=== PATIENT | female | born 1985 | race African-American/Black ===

== ENCOUNTER 2016-06-20 22:42 | Emergency (ER) | payer OTHER ==
[2016-06-20 22:51] VITALS: BP 108/59; PULSE 75; TEMP 98.1; BMI 25.7
[2016-06-20] MEDS ORDERED: NAPROXEN 375 MG TABLET (FP) ONE (23:44)
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
== END 2016-06-21 | disposition home or self-care (01) ==
LOC: FER 22:42
DX: S29.012A Strain of muscle and tendon of back wall of thorax, initial encounter (principal); X58.XXXA Exposure to other specified factors, initial encounter; Y93.89 Activity, other specified; Y92.159 Unspecified place in reform school as the place of occurrence of the external cause; Y99.0 Civilian activity done for income or pay
CPT/HCPCS: 99282-25

== ENCOUNTER 2018-01-06 22:17 | Emergency (ER) | payer OTHER ==
[2018-01-06 22:42] VITALS: BP 119/77; PULSE 73; TEMP 98.3; BMI 26.4
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
== END 2018-01-07 00:48 | disposition home or self-care (01) ==
LOC: FER 22:17
DX: S39.012A Strain of muscle, fascia and tendon of lower back, initial encounter (principal); S29.019A Strain of muscle and tendon of unspecified wall of thorax, initial encounter; V43.52XA Car driver injured in collision with other type car in traffic accident, initial encounter; Y93.89 Activity, other specified; Y92.410 Unspecified street and highway as the place of occurrence of the external cause
CPT/HCPCS: 72100-TC-FY; 84703; 99281-25

== ENCOUNTER 2018-02-06 14:35 | Emergency (ER) | payer OTHER ==
[2018-02-06 14:45] VITALS: BP 116/68; PULSE 74; TEMP 98; BMI 26.6
--- NOTE | 2018-02-06 15:07 | PDOC ---
History of Present Illness - General Chief Complaint: Urinary Problem Stated Complaint: POSSIBLE UTI Time Seen by Provider: 02/06/18 14:51 History Source: Patient Exam Limitations: No Limitations Past History - Past Medical History Allergies/Adverse Reactions: Allergies Allergy/AdvReac Type Severity Reaction Status Date / Time No Known Allergies Allergy Verified 02/06/18 14:44 Home Medications: Ambulatory Orders Cephalexin [Keflex] 500 mg PO BID #14 capsule 02/06/18 Anemia: No Asthma: No Cancer: No Cardiac Disorders: No CVA: No COPD: No CHF: No Dementia: No Diabetes: No GI Disorders: No Disorders: No HTN: No Hypercholesterolemia: No Liver Disease: No Seizures: No Thyroid Disease: No - Surgical History Abdominal Surgery: No Appendectomy: No Cardiac Surgery: No Cholecystectomy: No Lung Surgery: No Neurologic Surgery: No Orthopedic Surgery: No - Immunization History Immunization Up to Date: Yes - Suicide/Smoking/Psychosocial Hx Smoking Status: No Smoking History: Never smoked Have you smoked in the past 12 months: No Number of Cigarettes Smoked Daily: 0 Information on smoking cessation initiated: No Hx Alcohol Use: No Drug/Substance Use Hx: No Substance Use Type: None Hx Substance Use Treatment: No *Physical Exam - Vital Signs Last Vital Signs Temp Pulse Resp BP Pulse Ox 98.0 F 74 16 116/68 100 02/06/18 14:42 02/06/18 14:42 02/06/18 14:42 02/06/18 14:42 02/06/18 14:42 - Physical Exam General Appearance: No: Apparent Distress Respiratory/Chest: positive: Lungs Clear, Normal Breath Sounds. negative: Respiratory Distress Cardiovascular: positive: Regular Rhythm, Regular Rate, S1, S2. negative: Murmur Gastrointestinal/Abdominal: positive: Normal Bowel Sounds, Soft. negative: Tender, Distended, Guarding, Rebound, Tenderness Musculoskeletal: negative: CVA Tenderness Neurologic: positive: Fully Oriented, Alert, Normal Mood/Affect Moderate Sedation - Procedure Monitoring Vital Signs: Procedure Monitoring Vital Signs Temperature 98.0 F 02/06/18 14:42 Pulse Rate 74 02/06/18 14:42 Respiratory Rate 16 02/06/18 14:42 Blood Pressure 116/68 02/06/18 14:42 O2 Sat by Pulse Oximetry (%) 100 02/06/18 14:42 Medical Decision Making - Medical Decision Making 33 y/o F with no sig pmh presents with c/o "I have UTI." Patient mentions having urinary frequency, urgency and discomfort x 3 days. Has had UTIs in the past and states her symptoms feel similar to prior. Denies fever, sob, cp, abd pain, n/v, flank pain, hematuria, unusual vaginal discharge Will send UA, UCx to check for UTI 02/06/18 15:01 UA positive for UTI Microscopic hematuria noted (patient not on menstrual cycle); likely from the UTI Patient advised to practice good hygiene and drink plenty of water Prior urine culture from 09/2017 was positive for E.coli and was alves-sensitive to everything New rx: Keflex 500 mg BID 02/06/18 16:27 *DC/Admit/Observation/Transfer Diagnosis at time of Disposition: UTI (urinary tract infection) Qualifiers: Urinary tract infection type: acute cystitis Hematuria presence: without hematuria Qualified Code(s): N30.00 - Acute cystitis without hematuria - Discharge Dispostion Disposition: HOME Condition at time of disposition: Stable Decision to Admit order: No - Prescriptions Prescriptions: Cephalexin [Keflex] 500 mg PO BID #14 capsule - Referrals Referrals: Donta Yo MD [Primary Care Provider] - 3 days - Patient Instructions Printed Discharge Instructions: DI for Urinary Tract Infection (UTI) Additional Instructions: Thank you for choosing [facility]. It was a pleasure taking care of you. You were found to have urine infection Please take the antibiotics as prescribed Drink at least 2 L of water everyday Be sure to practice good hygiene Follow-up with your PCP in 3 days. Return to the Emergency Department if your symptoms worsen or persist, you have fever, shortness of breath, chest pain, severe abdominal pain, vomiting, blood in urine or other concerning symptoms. - Post Discharge Activity
[2018-02-06 16:06] LABS: URINE APPEARANCE CLOUDY; URINE BILIRUBIN NEGATIVE (<2.0 mg/dL); URINE COLOR YELLOW; URINE GLUCOSE (UA) NEGATIVE (NEGATIVE); URINE KETONE NEGATIVE (NEGATIVE); URINE LEUK ESTERASE 3+ (NEGATIVE); URINE NITRITE NEGATIVE (NEGATIVE); URINE PROTEIN 1+ (NEGATIVE); URINE UROBILINOGEN NEGATIVE mg/dL (0.2-1.0)
[2018-02-06 16:12] LABS: EPI CELLS MANY /HPF (FEW); URINE MUCUS FEW
[2018-02-06] MEDS ORDERED: CEPHALEXIN MONOHYDRATE 500 MG CAPSULE (UD) PO ONE (16:26)
[2018-02-06] MEDS ORDERED: CEPHALEXIN MONOHYDRATE 500 MG CAPSULE (UD) ONE (16:31)
== END 2018-02-06 16:39 | disposition home or self-care (01) ==
LOC: JERFT 14:35
DX: N30.00 Acute cystitis without hematuria (principal)
CPT/HCPCS: 81003; 81015; 87086; 99281-25

== ENCOUNTER 2018-04-06 20:19 | Emergency (ER) | payer OTHER ==
--- NOTE | 2018-04-06 20:48 | PDOC ---
Rapid Medical Evaluation Chief Complaint: Vaginal Bleeding Time Seen by Provider: 04/06/18 20:47 Medical Evaluation: Allergies Allergy/AdvReac Type Severity Reaction Status Date / Time No Known Allergies Allergy Verified 02/06/18 14:44 04/06/18 20:47 I have performed a brief in-person evaluation of this patient. The patient presents with a chief complaint of:cramping w/ vag bleeding today. , ~9 weeks by dates, no care as of yet Pertinent physical exam findings: Hypotensive but well geena in NAD I have ordered the following:T&S/beta/UA/US The patient will proceed to the ED for further evaluation. 04/06/18 20:57 Discharge Disposition - Diagnosis Threatened - Referrals - Patient Instructions - Post Discharge Activity
[2018-04-06 20:50] VITALS: BP 94/55; PULSE 67; TEMP 98.3; BMI 26.4
--- NOTE | 2018-04-06 21:33 | PDOC ---
History of Present Illness - General Chief Complaint: Vaginal Bleeding Stated Complaint: BLEEDING Time Seen by Provider: 04/06/18 20:47 History Source: Patient Exam Limitations: No Limitations - History of Present Illness Initial Comments: 33 yo F estimated GA with LMP of 01/23/2018 presents to the emergency department with vaginal bleeding, cramping, and lower back pain that began at approximately at 8:30 pm. Per the patient, she states she had acute onset of bilateral lower quadrant cramping sensation with radiation to her lower back bilaterally. The pain is 10/10 in her lower back and 6/10 in the bilateral lower abdomen with intermittence. Concurrently, she states she was having vaginal spotting in her underwear with red blood found on her tissues when she wipes, but denies massive clots. Incidentally, she has The patient is followed by Dr. Ulloa, but has not had her first appointment. She denies previous obstetric complications. Denies the following: fever, chills, nausea vomiting, chest pain, SOB, dysuria, diarrhea, and hematochezia. Allergies: NKDA Past History - Past Medical History Allergies/Adverse Reactions: Allergies Allergy/AdvReac Type Severity Reaction Status Date / Time No Known Allergies Allergy Verified 04/08/18 02:25 Anemia: No Asthma: No Cancer: No Cardiac Disorders: No CVA: No COPD: No CHF: No Dementia: No Diabetes: No GI Disorders: No Disorders: No HTN: No Hypercholesterolemia: No Liver Disease: No Seizures: No Thyroid Disease: No - Surgical History Abdominal Surgery: No Appendectomy: No Cardiac Surgery: No Cholecystectomy: No Lung Surgery: No Neurologic Surgery: No Orthopedic Surgery: No - Immunization History Immunization Up to Date: Yes - Suicide/Smoking/Psychosocial Hx Smoking Status: No Smoking History: Never smoked Have you smoked in the past 12 months: No Number of Cigarettes Smoked Daily: 0 Information on smoking cessation initiated: No Hx Alcohol Use: No Drug/Substance Use Hx: No Substance Use Type: None Hx Substance Use Treatment: No Review of Systems - Review of Systems Able to Perform ROS?: Yes Is the patient limited [place]an proficient: No Constitutional: No: Chills, Diaphoresis, Fever, Weakness HEENTM: No: Eye Pain, Recent change in vision, Ear Pain, Nose Pain, Throat Pain , Mouth Pain Respiratory: No: Cough, Shortness of Breath, Hemoptysis Cardiac (ROS): No: Chest Pain, Lightheadedness, Palpitations, Syncope, Chest Tightness ABD/GI: Yes: Abdominal cramping. No: Constipated, Diarrhea, Nausea, Rectal Bleeding, Vomiting, Tarry Stools : No: Burning, Dysuria, Hematuria Musculoskeletal: Yes: Back Pain. No: Joint Pain, Neck Pain Integumentary: No: Bruising, Erythema, Rash Neurological: No: Headache, Tingling, Ataxia, Dizziness Psychiatric: No: Change in Appetite Endocrine: No: Unexplained Weight Gain Hematologic/Lymphatic: No: Anemia *Physical Exam - Vital Signs Last Vital Signs Temp Pulse Resp BP Pulse Ox 98.3 F 67 16 94/55 L 98 04/06/18 20:47 04/06/18 20:47 04/06/18 20:47 04/06/18 20:47 04/06/18 20:47 - Physical Exam General Appearance: Yes: Nourished, Appropriately Dressed. No: Apparent Distress, Intoxicated HEENT: positive: EOMI, MORGAN, Normal ENT Inspection, Normal Voice, Symmetrical, TMs Normal, Pharynx Normal, Hearing Grossly Normal. negative: Pale Conjunctivae , Scleral Icterus (R), Scleral Icterus (L), Muffled/Hoarse voice, Pharyngeal Erythema, Tonsillar Exudate, Tonsillar Erythema, Nasal Congestion, Rhinorrhea, Sinus Tenderness, Excessive drooling Neck: positive: Trachea midline, Supple. negative: Tender, Lymphadenopathy (R) , Lymphadenopathy (L), Tender lateral, Tender midline Respiratory/Chest: positive: Lungs Clear, Normal Breath Sounds. negative: Chest Tender, Respiratory Distress, Accessory Muscle Use, Crackles, Rhonchi, Stridor, Wheezing Cardiovascular: positive: Regular Rhythm, Regular Rate, S1, S2. negative: Systolic Murmur Female Pelvic Exam: positive: normal external exam, other (blood in the vaginal vault. on bimanual, patient's os was fingertip open.). negative: adnexal tenderness Gastrointestinal/Abdominal: positive: Normal Bowel Sounds, Flat, Soft. negative : Tender, Guarding, Rebound Lymphatic: negative: Adenopathy Musculoskeletal: positive: Normal Inspection. negative: CVA Tenderness, Vertebral Tenderness Extremity: positive: Normal Capillary Refill, Normal Inspection, Normal Range of Motion. negative: Tender Integumentary: positive: Normal Color, Dry, Warm. negative: Swelling, Ecchymosis Neurologic: positive: thermite welder II-XII NML intact, Fully Oriented, Alert, Normal Mood/ Affect, Normal Response, Motor Strength 5/5. negative: EOM Palsy, Facial Droop Moderate Sedation - Procedure Monitoring Vital Signs: Procedure Monitoring Vital Signs Temperature 98.3 F 04/06/18 20:47 Pulse Rate 67 04/06/18 20:47 Respiratory Rate 16 04/06/18 20:47 Blood Pressure 94/55 L 04/06/18 20:47 O2 Sat by Pulse Oximetry (%) 98 04/06/18 20:47 Medical Decision Making - Medical Decision Making 33 yo F estimated GA with LMP of 01/23/2018 presents to the emergency department with vaginal bleeding, cramping, and lower back pain that began at approximately at 8:30 pm. Initial vitals: Initial Vital Signs Temp Pulse Resp BP Pulse Ox 98.3 F 67 16 94/55 L 98 04/06/18 20:47 04/06/18 20:47 04/06/18 20:47 04/06/18 20:47 04/06/18 20:47 Work up: ddx: threatened vs incomplete vs inevitable vs complete vs dysmenorrhea Laboratory Tests 04/06/18 04/06/18 04/06/18 20:50 20:50 21:25 Beta HCG, Quant 2875.0 Urine Color Yellow Urine Appearance Cloudy Urine pH 7.0 D Ur Specific [place] 1.023 Urine Protein Negative Urine Glucose (UA) Negative Urine Ketones Negative Urine Blood 3+ H Urine Nitrite Negative Urine Bilirubin Negative Urine Urobilinogen Negative Ur Leukocyte Esterase Trace Urine WBC (Auto) 3 Urine RBC (Auto) 5 Ur Epithelial Cells Moderate Urine Bacteria Rare Urine Mucus Rare Blood Type B POSITIVE Antibody Screen Negative bhcg is 2875 with TVUS showing likely demise. patient has not had first appointment with obgyn as they kept missing the appointments and has not been on vitamins. i discussed with the patient that she was likely going through a miscarriage given the bhcg, tvus, and physical exam findings. i gave her strict return precautions and advised her to follow up with her OBGYN physician in 48 hours for repeat bhcg and us. the patient was well appearing on discharge and able to ambulate on her own volition. Dispo: Discharge *DC/Admit/Observation/Transfer Diagnosis at time of Disposition: Threatened - Discharge Dispostion Disposition: HOME Decision to Admit order: No - Referrals Referrals: Donta Yo MD [Primary Care Provider] - Corin Stovall DO [Staff Physician] - - Patient Instructions Printed Discharge Instructions: DI for Threatened Additional Instructions: you were seen in the emergency for the evaluation of your vaginal bleeding and cramping. your ultrasound shows probably demise. your bhcg is 2875. please follow up with Dr. Stovall in 2 days for a repeat bhcg and ultrasound. please return to the emergency department if you have the following symptoms: worsening cramps, heavier bleeding with clots passing, lightheadedness, intractable nausea and vomiting, and uncontrollable pain. Please review the materials regarding your condition included in this packet. - Post Discharge Activity
[2018-04-06 21:42] LABS: URINE APPEARANCE CLOUDY; URINE BILIRUBIN NEGATIVE (<2.0 mg/dL); URINE COLOR YELLOW; URINE GLUCOSE (UA) NEGATIVE (NEGATIVE); URINE KETONE NEGATIVE (NEGATIVE); URINE LEUK ESTERASE TRACE (NEGATIVE); URINE NITRITE NEGATIVE (NEGATIVE); URINE PROTEIN NEGATIVE (NEGATIVE); URINE UROBILINOGEN NEGATIVE mg/dL (0.2-1.0)
[2018-04-06 21:50] LABS: EPI CELLS MODERATE /HPF (FEW); URINE BACTERIA RARE /hpf (NONE SEEN); URINE MUCUS RARE
--- NOTE | 2018-04-06 22:03 | PDOC ---
Attending Attestation - HPI HPI: 04/06/18 22:28 The patient is a 33 year old female, , who presents to the ER with vaginal bleeding, abdominal cramping, and lower back pain today. Patient reports seeing red blood after wiping today, but denies any blood clots. 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 LMP was on January 23. Patient denies fever, chills, N/V/D/C, urinary symptoms. Allergies: NKA Past surgical history: None reported. Social history: No reported alcohol, drug or cigarette use. PCP: Dr. Donta Yo - Physicial Exam PE: 04/06/18 22:25 ADULT PHYSICAL EXAM Constitutional: Awake, alert, oriented. No acute distress. Cardiovascular: Regular rate. Regular rhythm. S1, S2 regular. Distal pulses are 2+ and symmetric. Pulmonary/Chest: No evidence of respiratory distress. Clear to auscultation bilaterally No wheezing, rales or rhonchi. Abdominal: Soft and non-distended. There is no tenderness. No rebound, guarding or rigidity. No organomegaly. No palpable masses. Good bowel sounds. Pelvic Exam: (+) Os is fingertip open, bright red blood in the vault, no clots. Musculoskeletal: No edema. No cyanosis. No clubbing. Full range of motion in all extremities. Nocalf tenderness. Radial/pedal pulses are intact and 2+ bilaterally Skin: Skin is warm and dry. No petechiae. No purpura. Neurological: Alert and oriented to person, place, and time. Cranial nerves II -XII are grossly intact. Normal speech. Strength is grossly symmetric. No sensory deficits. Psychiatric: Good eye contact. Normal interaction, affect and behavior. <Mile Patterson - Last Filed: 04/06/18 23:35> - Resident Resident Name: James Topete - ED Attending Attestation I have performed the following: I have examined & evaluated the patient, The case was reviewed & discussed with the resident, I agree w/resident's findings & plan, Exceptions are as noted - Medical Decision Making 04/06/18 22:03 I, Dr. Lilly Pavon, DO, attest that this document has been prepared under my direction and personally reviewed by me in its entirety. I further attest, that it accurately reflects all work, treatment, procedures and medical decision -making performed by me. 04/06/18 22:32 a/p: 33yo at about 10 weeks gestation with vaginal cramping and bleeding -concern for threatened ab -has missed multiple [facility] appointments and has not had confirmed IUP -pelvic exam shows os open and blood in the vaginal vault -labs pending -tvus pending -will monitor and reassess -pt is not taking vitamins -follows with Dr. Stovall 04/06/18 23:52 beta 2500 demise on ultrasound resident discussed expectant management stable for dc to home <Lilly Pavon - Last Filed: 04/06/18 23:52>
[2018-04-06] MEDS ORDERED: ACETAMINOPHEN 325 MG TABLET (FP) ONE ×2 (22:53→22:55)
== END 2018-04-07 00:24 | disposition home or self-care (01) ==
LOC: JER 20:19
DX: O26.891 Other specified pregnancy related conditions, first trimester (principal); O02.1 Missed abortion; Z3A.10 10 weeks gestation of pregnancy
CPT/HCPCS: 36415; 76817-TC; 81003; 81015; 84702; 86850; 86900; 86901; 87081; 99282-25

== ENCOUNTER 2018-04-08 02:11 | Emergency (ER) | payer OTHER ==
[2018-04-08 02:26] VITALS: TEMP 98.3; BMI 26.4
--- NOTE | 2018-04-08 02:51 | PDOC ---
Attending Attestation - Resident Resident Name: Vladimir Bosch - ED Attending Attestation I have performed the following: I have examined & evaluated the patient, The case was reviewed & discussed with the resident, I agree w/resident's findings & plan - HPI HPI: 04/08/18 03:34 33-year-old female with vaginal bleeding, patient seen yesterday and diagnosed with a missed with scheduled KEY ENTRY OPERATOR follow-up at 9:45 AM. She states she passed a large clot and the bleeding became heavier. There is no associated fever vomiting or back pain. She is having pelvic cramps. - Physicial Exam PE: 04/08/18 03:35 Agree with resident's exam - Medical Decision Making 04/08/18 03:35 33-year-old female with missed now with increased bleeding Bedside ultrasound showed no obvious debris in the uterus Labs pending with plans for discharge home if beta quantitative level is decreased
--- NOTE | 2018-04-08 02:52 | PDOC ---
History of Present Illness - General Chief Complaint: Vaginal Bleeding Stated Complaint: MISCARRIAGE Time Seen by Provider: 04/08/18 02:51 - History of Present Illness Initial Comments: The patient is a 33 year old female, , who presents for evaluation of persistent vaginal bleeding, abdominal cramping, and lower back pain since yesterday. She was seen here on 04/06/2018 for the initiation of her symptoms. At that time she states that she was 10weeks . Today she reports that passage of large clots at approximately 2000 earlier tonight. Reports soaking 2 pads every 30 minutes since that time. She endorses being lightheaded. Denies LOC. 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 LMP was on January 23. Allergies: NKA Past surgical history: None reported. Social history: No reported alcohol, drug or cigarette use PCP: Dr. Donta Yo 04/08/18 02:52 Past History - Past Medical History Allergies/Adverse Reactions: Allergies Allergy/AdvReac Type Severity Reaction Status Date / Time No Known Allergies Allergy Verified 04/08/18 02:25 Anemia: No Asthma: No Cancer: No Cardiac Disorders: No CVA: No COPD: No CHF: No Dementia: No Diabetes: No GI Disorders: No Disorders: No HTN: No Hypercholesterolemia: No Liver Disease: No Seizures: No Thyroid Disease: No - Surgical History Abdominal Surgery: No Appendectomy: No Cardiac Surgery: No Cholecystectomy: No Lung Surgery: No Neurologic Surgery: No Orthopedic Surgery: No - Immunization History Immunization Up to Date: Yes - Suicide/Smoking/Psychosocial Hx Smoking Status: No Smoking History: Never smoked Have you smoked in the past 12 months: No Number of Cigarettes Smoked Daily: 0 Information on smoking cessation initiated: No Hx Alcohol Use: No Drug/Substance Use Hx: No Substance Use Type: None Hx Substance Use Treatment: No Review of Systems - Review of Systems Able to Perform ROS?: Yes Comments:: GENERAL/CONSTITUTIONAL: No fever or chills. No weakness HEAD, EYES, EARS, NOSE AND THROAT: No change in vision. No ear pain or discharge. No sore throat CARDIOVASCULAR: No chest pain or shortness of breath RESPIRATORY: Denies cough, hemoptysis GASTROINTESTINAL: No nausea, vomiting, diarrhea or constipation GENITOURINARY: per HPI MUSCULOSKELETAL: +lower back pain since onset of SAb. Otherwise, no joint or muscle swelling or pain SKIN: No rash NEUROLOGIC: No headache, vertigo, loss of consciousness, or change in strength/ sensation ENDOCRINE: No increased thirst. No abnormal weight change HEMATOLOGIC/LYMPHATIC: No anemia, easy bleeding, or history of blood clots ALLERGIC/IMMUNOLOGIC: No hives or skin allergy 04/08/18 03:46 Is the patient limited Swedish proficient: No *Physical Exam - Vital Signs Last Vital Signs Temp Pulse Resp BP Pulse Ox 98.3 F 78 20 116/68 98 04/08/18 02:25 04/08/18 02:25 04/08/18 02:25 04/08/18 02:25 04/08/18 02:25 - Physical Exam Comments: GENERAL: Awake, alert, and fully oriented, in no acute distress HEAD: No signs of trauma, normocephalic, atraumatic EYES: PERRLA, EOMI, sclera anicteric, conjunctiva clear ENT: Hearing grossly normal, nares patent, oropharynx clear without exudates. Moist mucosa LUNGS: No distress, speaks full sentences, clear to auscultation bilaterally HEART: Regular rate and rhythm, normal S1 and S2, no murmurs appreciated, peripheral pulses normal and equal bilaterally ABDOMEN: Soft, mild suprapubic TTP w/o rebound or guarding, non-distended, normoactive bowel sounds EXTREMITIES : Normal inspection, Normal range of motion, no edema. No clubbing or cyanosis NEUROLOGICAL: Cranial nerves II through XII grossly intact. Normal speech, no focal sensorimotor deficits SKIN: Warm, Dry, normal turgor, no rashes or lesions noted Pelvic External genitalia unremarkable. Speculum exam with blood and clot in vaginal canal Vaginal wall mucosa is unremarkable Cervical os open 04/08/18 03:36 Moderate Sedation - Procedure Monitoring Vital Signs: Procedure Monitoring Vital Signs Temperature 98.3 F 04/08/18 02:25 Pulse Rate 78 04/08/18 02:25 Respiratory Rate 20 04/08/18 02:25 Blood Pressure 116/68 04/08/18 02:25 O2 Sat by Pulse Oximetry (%) 98 04/08/18 02:25 ED Treatment Course - LABORATORY CBC & Chemistry Diagram: 04/08/18 03:21 Medical Decision Making - Medical Decision Making The patient is a 33F who presents for persistent bleeding s/p beginning spontaneous yesterday with passage of clot and likely contents today ED Course Beta quant CBC 02/08/19 03:49 Hgb wnl Leukocytosis to 16, pt afebrile Patient with vagal episode -1L NS given -Will obtain standing BP s/p fluids Beta downtrending Patient w/ OBGYN appt at 0900 today, counseled to make sure she keeps said appointment 04/08/18 05:27 Standing BP: 87/43 -Will give another 1L NS 04/08/18 05:36 Repeat BP while standing improved s/p second liter Patient not lightheaded w/ standing and reports her symptoms are improved Plan for D/C w/ OBGYN f/u Discharge instructions and return precautions given Patient in agreement and verbalized understanding Dispo: home *DC/Admit/Observation/Transfer Diagnosis at time of Disposition: Spontaneous - Discharge Dispostion Disposition: HOME Condition at time of disposition: Stable Decision to Admit order: No - Referrals Referrals: Jolly Puga MD [Primary Care Provider] - Corin Stovall DO [Staff Physician] - - Patient Instructions Printed Discharge Instructions: DI for Miscarriage Additional Instructions: You were seen in the Emergency Department for evaluation of vaginal bleeding and spontaneous miscarriage. You hemoglobin was within normal limits (13). Review the handout provided at discharge. Be sure to keep your follow up with OBGYN this coming morning. Return to the Emergency Department if your symptoms worsen, you have uncontrolled bleeding, dizziness, fevers, or any new/concerning symptoms. - Post Discharge Activity Forms/Work/School Notes: Back to Work
[2018-04-08] MEDS ORDERED: IBUPROFEN 400 MG TABLET (FP) PO ONE ×2 (02:56→03:40)
[2018-04-08 03:36] LABS: HEMATOCRIT 35.9 % (32.4-45.2); HEMOGLOBIN 12.6 GM/dL (10.7-15.3); MCH 33.3 pg (25.7-33.7); MCHC 35.1 g/dl (32.0-36.0); MEAN CELL VOLUME 94.8 fl (80-96); MEAN PLT VOLUME 9.1 fl (7.5-11.1); PLATELET COUNT 275 K/MM3 (134-434); RBC 3.79 M/mm3 (3.60-5.2); WHITE BLOOD COUNT 16.2 K/mm3 (4.0-10.0)
[2018-04-08] MEDS ORDERED: SODIUM CHLORIDE 0.9% 500 ML INFUS.BAG IV ONE ×2 (04:20→05:47)
[2018-04-08 06:37] VITALS: BP 96/54; PULSE 76
== END 2018-04-08 07:10 | disposition home or self-care (01) ==
LOC: JER 02:11
PROC: BY49ZZZ Ultrasonography of First Trimester, Single Fetus (ICD-10-PCS; principal; 2018-04-08)
DX: O26.891 Other specified pregnancy related conditions, first trimester (principal); O02.1 Missed abortion; Z3A.10 10 weeks gestation of pregnancy
CPT/HCPCS: 36415; 76801-TC; 84702; 85027; 99283-25

== ENCOUNTER 2018-05-20 20:13 | Emergency (ER) | payer OTHER ==
[2018-05-20 20:40] VITALS: BP 106/73; PULSE 89; TEMP 99.3; BMI 26.4
--- NOTE | 2018-05-20 21:37 | PDOC ---
History of Present Illness - General History Source: Patient Exam Limitations: No Limitations - History of Present Illness Initial Comments: 05/20/18 21:39 The patient is a 33-year-old female with no reported past medical history presents to the emergency department with nausea, vomiting, and diarrhea. The patient reports around 5:00 pm today she started to have multiple episodes of nonbloody, nonbilious, clear emesis. The patient states the symptoms progressed into [id number] diarrhea, with the last episode at the ER. The patient reports associated symptoms of diffuse abdominal pain, mild headache and back pain. Denies recent travel or intake of unusual foods. The patient report sick contact with daughter and boyfriend, who has similar symptoms. Allergies: seasonal allergies. <Mellissa Paige - Last Filed: 05/20/18 21:38> <Kimberley Smith - Last Filed: 05/22/18 05:24> - General Chief Complaint: Nausea/Vomiting Stated Complaint: N/V/D Time Seen by Provider: 05/20/18 20:23 Past History <Mellissa Paige - Last Filed: 05/20/18 21:38> - Past Medical History Anemia: No Asthma: No Cancer: No Cardiac Disorders: No CVA: No COPD: No CHF: No Dementia: No Diabetes: No GI Disorders: No Disorders: No HTN: No Hypercholesterolemia: No Liver Disease: No Seizures: No Thyroid Disease: No - Surgical History Abdominal Surgery: No Appendectomy: No Cardiac Surgery: No Cholecystectomy: No Lung Surgery: No Neurologic Surgery: No Orthopedic Surgery: No - Immunization History Td Vaccination: Yes TDAP Vaccination: Yes Immunization Up to Date: Yes - Suicide/Smoking/Psychosocial Hx Smoking Status: No Smoking History: Never smoked Have you smoked in the past 12 months: No Number of Cigarettes Smoked Daily: 0 Hx Alcohol Use: Yes (OCCASIONAL) Drug/Substance Use Hx: No Substance Use Type: None Hx Substance Use Treatment: No <Kimberley Smith - Last Filed: 05/22/18 05:24> - Past Medical History Allergies/Adverse Reactions: Allergies Allergy/AdvReac Type Severity Reaction Status Date / Time No Known Allergies Allergy Verified 05/20/18 20:15 Home Medications: Ambulatory Orders NK [No Known Home Medication] 05/20/18 Review of Systems - Review of Systems Able to Perform ROS?: Yes Comments:: 05/20/18 21:39 GENERAL/CONSTITUTIONAL: No fever or chills. No weakness. HEAD, EYES, EARS, NOSE AND THROAT: No change in vision. No ear pain or discharge. No sore throat. CARDIOVASCULAR: No chest pain or shortness of breath. RESPIRATORY: No cough, wheezing, or hemoptysis. GASTROINTESTINAL: +nausea, vomiting and diarrhea. +abdominal pain. No constipation. GENITOURINARY: No dysuria, frequency, or change in urination. MUSCULOSKELETAL: No joint or muscle swelling or pain. No neck or back pain. SKIN: No rash NEUROLOGIC: +headache. No vertigo, loss of consciousness, or change in strength/ sensation. ENDOCRINE: No increased thirst. No abnormal weight change. HEMATOLOGIC/LYMPHATIC: No anemia, easy bleeding, or history of blood clots. ALLERGIC/IMMUNOLOGIC: No hives or skin allergy. <Mellissa Paige - Last Filed: 05/20/18 21:38> *Physical Exam - Vital Signs Last Vital Signs Temp Pulse Resp BP Pulse Ox 99.3 F 89 16 106/73 100 05/20/18 20:14 05/20/18 20:14 05/20/18 20:14 05/20/18 20:14 05/20/18 20:14 - Physical Exam Comments: 05/20/18 21:39 GENERAL: Awake, alert, and fully oriented, in no acute distress HEAD: No signs of trauma EYES: PERRLA, EOMI, sclera anicteric, conjunctiva clear ENT: +dry mucous membranes. Auricles normal inspection, hearing grossly normal, nares patent, oropharynx clear without exudates. NECK: Normal ROM, supple, no lymphadenopathy, JVD, or masses LUNGS: Breath sounds equal, clear to auscultation bilaterally. No wheezes, and no crackles HEART: Regular rate and rhythm, normal S1 and S2, no murmurs, rubs or gallops ABDOMEN: Soft, nontender, normoactive bowel sounds. No guarding, no rebound. No masses EXTREMITIES: Normal range of motion, no edema. No clubbing or cyanosis. No cords, erythema, or tenderness NEUROLOGICAL: No focal findings. Normal speech, normal gait SKIN: Warm, Dry, normal turgor, no rashes or lesions noted. <Mellissa Paige - Last Filed: 05/20/18 21:38> - Vital Signs Last Vital Signs Temp Pulse Resp BP Pulse Ox 99.3 F 89 16 106/73 100 05/20/18 20:14 05/20/18 20:14 05/20/18 20:14 05/20/18 20:14 05/20/18 20:14 <Kimberley Smith - Last Filed: 05/22/18 05:24> Moderate Sedation - Procedure Monitoring Vital Signs: Procedure Monitoring Vital Signs Temperature 99.3 F 05/20/18 20:14 Pulse Rate 89 05/20/18 20:14 Respiratory Rate 16 05/20/18 20:14 Blood Pressure 106/73 05/20/18 20:14 O2 Sat by Pulse Oximetry (%) 100 05/20/18 20:14 <Mellissa Paige - Last Filed: 05/20/18 21:38> - Procedure Monitoring Vital Signs: Procedure Monitoring Vital Signs Temperature 99.3 F 05/20/18 20:14 Pulse Rate 89 05/20/18 20:14 Respiratory Rate 16 05/20/18 20:14 Blood Pressure 106/73 05/20/18 20:14 O2 Sat by Pulse Oximetry (%) 100 05/20/18 20:14 <Kimberley Smith - Last Filed: 05/22/18 05:24> ED Treatment Course - LABORATORY CBC & Chemistry Diagram: 05/20/18 21:20 05/20/18 21:20 <Kimberley Smith - Last Filed: 05/22/18 05:24> Progress Note - Progress Note Progress Note: Documentation has been prepared under my direction and personally reviewed by me in its entirety. I attest that this documented accurately reflects all work, treatment, procedures and medical decision making performed by me. <Kimberley Smith - Last Filed: 05/22/18 05:24> Medical Decision Making - Medical Decision Making As noted above, this otherwise healthy 33-year-old woman presents with 1 day history of nausea/vomiting/diarrhea. Patient has sick contacts within her household: Her boyfriend and her daughter. Exam as noted. Laboratory evaluation notable for minimal elevation of her white blood cell count (11,300); otherwise, no significant abnormality seen in CBC or chemistry profile. Patient received 2 L of normal saline and felt significantly better after IV hydration Patient discharged with instruction to maintain clear liquids by mouth and advance diet cautiously . <Kimberley Smith - Last Filed: 05/22/18 05:24> *DC/Admit/Observation/Transfer - Attestations Scribe Attestion: 05/20/18 21:39 Documentation prepared by Mellissa Paige, acting as medical receptionist assistant for Kimberley Smith MD. <Mellissa Paige - Last Filed: 05/20/18 21:38> <Kimberley Smith - Last Filed: 05/22/18 05:24> Diagnosis at time of Disposition: Gastroenteritis - Discharge Dispostion Disposition: HOME Condition at time of disposition: Stable - Patient Instructions Printed Discharge Instructions: Viral Gastroenteritis Additional Instructions: rest clear liquids, advance diet cautiously Imodium/peptobismol as needed for persistent diarrhea return to ER if you severe pain,persistent vomiting, high fever followup with your doctor within 3-4 days
[2018-05-20 21:46] LABS: BASO % 2.5 % (0-2.0); EOS % 0.6 % (0-4.5); HEMATOCRIT 38.8 % (32.4-45.2); HEMOGLOBIN 12.9 GM/dl (10.7-15.3); LYMPH % 3.5 % (8-40); MCH 31.6 pg (25.7-33.7); MCHC 33.3 g/dl (32.0-36.0); MEAN PLT VOLUME 9.3 fl (7.5-11.1); MONO % 5.1 % (3.8-10.2); NEUT % 88.3 % (42.8-82.8); PLATELET COUNT 317 K/MM3 (134-434); RBC 4.08 M/mm3 (3.60-5.2); WHITE BLOOD COUNT 11.3 K/mm3 (4.0-10.8)
[2018-05-20 23:43] LABS: ALBUMIN 4.5 g/dl (3.4-5.0); ALK PHOS 53 U/L (45-117); ANION GAP 11 MMOL/L (8-16); BILIRUBIN,TOTAL 0.9 mg/dl (0.2-1); BLOOD UREA NITROGEN 14 mg/dl (7-18); CALCIUM 9.1 mg/dl (8.5-10); CHLORIDE 103 mmol/L (98-107); CO2 22 mmol/L (21-32); CREATININE 0.7 mg/dl (0.55-1.3); GLUCOSE,RANDOM 96 mg/dl (74-106); POTASSIUM 3.7 mmol/L (3.5-5.1); SGOT/AST 18 U/L (15-37); SGPT/ALT 10 U/L (13-61); SODIUM 136 mmol/L (136-145); TOT PROT 8.2 g/dl (6.4-8.2)
== END 2018-05-21 00:11 | disposition home or self-care (01) ==
LOC: FER 20:13
DX: K52.9 Noninfective gastroenteritis and colitis, unspecified (principal)
CPT/HCPCS: 36415; 80053; 85025; 99283-25

== ENCOUNTER 2018-08-17 13:57 | Emergency (ER) | payer OTHER ==
[2018-08-17 14:20] VITALS: BP 113/77; PULSE 73; TEMP 98.9; BMI 26.4
--- NOTE | 2018-08-17 14:39 | PDOC ---
History of Present Illness - General Chief Complaint: Urinary Problem Stated Complaint: UTI Time Seen by Provider: 08/17/18 14:10 - History of Present Illness Initial Comments: 08/17/18 14:41 The patient is a 33 year old female with a history of UTIs who presents for evaluation of urinary frequency and urgency. The patient reports a 1 week history of increasing urinary frequency and urgency similar to her prior UTIs prompting her presentation to the ED for further evaluation. She denies any other symptoms and otherwise denies fevers, chills, SOB, chest pain, nausea, vomiting, abdominal pain, dysuria, or changes with bowel movements. Past History - Past Medical History Allergies/Adverse Reactions: Allergies Allergy/AdvReac Type Severity Reaction Status Date / Time No Known Allergies Allergy Verified 08/17/18 14:17 Home Medications: Ambulatory Orders NK [No Known Home Medication] 05/20/18 Anemia: No Asthma: No Cancer: No Cardiac Disorders: No CVA: No COPD: No CHF: No Dementia: No Diabetes: No GI Disorders: No Disorders: Yes (UTI) HTN: No Hypercholesterolemia: No Liver Disease: No Seizures: No Thyroid Disease: No - Surgical History Abdominal Surgery: No Appendectomy: No Cardiac Surgery: No Cholecystectomy: No Lung Surgery: No Neurologic Surgery: No Orthopedic Surgery: No - Immunization History Td Vaccination: Yes TDAP Vaccination: Yes Immunization Up to Date: Yes - Suicide/Smoking/Psychosocial Hx Smoking Status: No Smoking History: Never smoked Have you smoked in the past 12 months: No Number of Cigarettes Smoked Daily: 0 Hx Alcohol Use: No Drug/Substance Use Hx: No Substance Use Type: None Hx Substance Use Treatment: No Review of Systems - Review of Systems Comments:: 08/17/18 14:48 Constitutional: No fevers, chills, fatigue, malaise HEENT: No Rhinorrhea, nasal congestion, visual changes Cardiovascular: No chest pain, syncope, palpitations, lightheadedness Respiratory: No Cough, SOB, Hemoptysis, Gastrointestinal: No Abdominal pain, Nausea, Vomiting, Constipation, Diarrhea, Melena Genitourinary: Increased Frequency and Urgency. No Dysuria, Hesitancy, Hematuria, Flank pain Musculoskeletal: No Myalgia, arthralgia Skin: No rashes, itching, bruising, pallor Neurologic: No Headache, Dizziness, Numbness, Weakness, or Tingling Psychiatric: No Hallucinations. No SI or HI *Physical Exam - Vital Signs Last Vital Signs Temp Pulse Resp BP Pulse Ox 98.9 F 73 18 113/77 100 08/17/18 13:58 08/17/18 13:58 08/17/18 13:58 08/17/18 13:58 08/17/18 13:58 - Physical Exam Comments: 08/17/18 14:48 General Appearance: Nourished. No Apparent Distress HEENT: No Pharyngeal Erythema, Tonsillar Exudate, Tonsillar Erythema Neck: No Cervical Lymphadenopathy Respiratory/Chest: Lungs Clear, Normal Breath Sounds. No Crackles, Rales, Rhonchi, Wheezing Cardiovascular: Regular Rhythm, Regular Rate. No Murmur, Gallops, Rubs Gastrointestinal/Abdominal: Normal Bowel Sounds, Soft. No Guarding, Rebound, Tenderness Musculoskeletal: No CVA Tenderness Extremity: Normal Capillary Refill Integumentary: Normal Color, Dry, Warm Neurologic: Fully Oriented, Alert, Normal Mood/Affect, Normal Response, Medical Decision Making - Medical Decision Making 08/17/18 14:46 The patient is a 33 year old female with a history of UTIs who presents for evaluation of urinary frequency and urgency. Given the patient's history and physical exam, we will obtain a UA and urine culture to evaluate further. We will continue to monitor and reassess while here in the ED. 08/17/18 15:03 UA is unremarkable. Urine culture is pending. We are comfortable discharging the patient home in stable condition. Patient and family made aware of impression and plan, return precautions discussed including but not limited to worsening pain or symptoms, fevers, or signs of infection, chest pain, respiratory distress, inability to tolerate oral intake, dehydration, syncope, or neurologic changes. The patient is to follow up with PMD as recommended within 1 week, follow up information provided and the patient will call for an appointment. The patient is to take medications as instructed for duration of time and continue with supportive care, avoid triggers and precipitants. Patient is safe for outpatient follow-up. *DC/Admit/Observation/Transfer Diagnosis at time of Disposition: Frequent urination - Discharge Dispostion Disposition: HOME Condition at time of disposition: Stable - Referrals - Patient Instructions Printed Discharge Instructions: DI for Urinary Tract Infection (UTI) Additional Instructions: 1) Please follow-up with your primary care doctor in the next 2-3 days. Please call tomorrow to schedule a follow up appointment. If you cannot follow up with your doctor within 1 week please return to the Emergency Department for any urgent issues. 2) Your urine results were normal here in the ER. 3) If you have any worsening of symptoms or any other concerns please return to the ER immediately. Return if worsening symptoms including fevers, headache, vomiting, visual or hearing disturbances, abdominal pain, chest pain, shortness of breath, syncope, dehydration, inability to take things by mouth/vomiting, altered mental status, or worsening concerning symptoms. 4) Please continue taking your home medications as directed. Side effects may include upset stomach, abdominal pain, vomiting, or diarrhea. Do not drink alcohol with your medications. - Post Discharge Activity
--- NOTE | 2018-08-17 15:27 | PDOC ---
Attending Attestation - Resident Resident Name: Tito Soares - HPI HPI: 08/17/18 15:28 Dysuria for 1 week. History of infrequent UTIs. No hematuria, vaginal bleeding or discharge, or lesions. No risk factors for STD. No fever or back pain 08/17/18 15:29 - Physicial Exam PE: 08/17/18 15:29 Physical exam: Afebrile. Abdomen soft nontender. No CVAT. - Medical Decision Making 08/17/18 15:29 Elisha: Rule out UTI Plan: Urinalysis is clear. test is negative. Urine culture pending. Patient instructed to call for culture results in 2 days, if positive antibiotics will be prescribed. In the meantime, symptomatic treatment with fluids, Pyridium.
== END 2018-08-17 15:03 | disposition home or self-care (01) ==
LOC: FER 13:57
DX: R35.0 Frequency of micturition (principal); Z87.440 Personal history of urinary (tract) infections
CPT/HCPCS: 81003; 84703; 87086; 99282-25

== ENCOUNTER 2018-11-02 23:24 | Emergency (ER) | payer OTHER ==
[2018-11-02 23:32] VITALS: BP 108/63; PULSE 81; TEMP 98.1; BMI 26.4
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
== END 2018-11-03 01:36 | disposition home or self-care (01) ==
LOC: FER 23:24
DX: S16.1XXA Strain of muscle, fascia and tendon at neck level, initial encounter (principal); S39.012A Strain of muscle, fascia and tendon of lower back, initial encounter; V43.52XA Car driver injured in collision with other type car in traffic accident, initial encounter; Y93.89 Activity, other specified; Y92.410 Unspecified street and highway as the place of occurrence of the external cause
CPT/HCPCS: 81025; 99282-25

== ENCOUNTER 2019-01-11 23:44 | Emergency (ER) | payer OTHER ==
[2019-01-12 00:04] VITALS: BP 113/67; PULSE 58; TEMP 98.5; BMI 62.8
--- NOTE | 2019-01-12 00:04 | PDOC ---
History of Present Illness - General Chief Complaint: Urinary Problem Stated Complaint: POSSIBLE U.T.I. Time Seen by Provider: 01/12/19 00:04 - History of Present Illness Initial Comments: 01/12/19 00:04 CHIEF COMPLAINT: UTI HISTORY OF PRESENT ILLNESS: 33 yo F presents to ED with UTI. Patient reports she has had frequent UTIs and her symptoms today are exactly the same, including urinary frequency and dysuria. Patient denies any hematuria. Patient reports having had countless UTIs this year. Denies fever, vomiting, diarrhea, or back/flank pain. No recent travel or sick contacts. PAST MEDICAL HISTORY: Denies past medical history FAMILY HISTORY: Denies SOCIAL HISTORY: Denies tobacco, alcohol, illicit drug use. SURGICAL HISTORY: Denies ALLERGIES: No known drug allergies REVIEW OF SYSTEMS General/Constitutional: Denies fever or chills. Denies weakness, weight change. HEENT: Denies change in vision. Denies ear pain or discharge. Denies sore throat. Cardiovascular: Denies chest pain or shortness of breath. Respiratory: Denies cough, wheezing, or hemoptysis. Gastrointestinal: Denies nausea, vomiting, diarrhea or constipation. Denies rectal bleeding. Genitourinary: Dysuria, urinary frequency. Musculoskeletal: Denies joint or muscle swelling or pain. Denies neck or back pain. Skin and breasts: Denies rash or easy bruising. Neurologic: Denies headache, vertigo, loss of consciousness, or loss of sensation. Psychiatric: Denies depression or anxiety. PHYSICAL EXAM General Appearance: Well-appearing, appropriately dressed. No apparent distress , no intoxication. HEENT: EOMI, PERRLA, normal ENT inspection, normal voice, TMs normal, pharynx normal. No conjunctival pallor. No photophobia, scleral icterus. Neck: Supple. Trachea midline. No tenderness, rigidity, carotid bruit, stridor , lymphadenopathy, or thyromegaly. Respiratory/Chest: Lungs CTAB. No shortness of breath, chest tenderness, respiratory distress, accessory muscle use. No crackles, rales, rhonchi, stridor , wheezing, dullness Cardiovascular: RRR. S1, S2. No JVD, murmur, bradycardia, tachycardia. Vascular Pulses: Dorsalis-Pedis (R): 2+, Dorsalis-Pedis (L): 2+ Gastrointestinal/Abdominal: Normal bowel sounds. Abdomen soft, non-distended. No tenderness or rebound tenderness. No organomegaly, pulsatile mass, guarding , hernia, hepatomegaly, splenomegaly. Lymphatic: No adenopathy, tenderness. Musculoskeletal/Extremities: Normal inspection. FROM of all extremities, normal capillary refill. Pelvis Stable. No CVA tenderness. No tenderness to extremities, pedal edema, swelling, erythema or deformity. Integumentary: Appropriate color, dry, warm. 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 Fully oriented, alert. Appropriate mood/affect. Motor strength 5/5. No appreciable EOM palsy, facial droop or sensory deficit. 01/12/19 00:21 Past History - Past Medical History Allergies/Adverse Reactions: Allergies Allergy/AdvReac Type Severity Reaction Status Date / Time No Known Allergies Allergy Verified 08/17/18 14:17 Home Medications: Ambulatory Orders D-Mannose 500 mg PO DAILY 30 Days #1 bottle 01/12/19 Nitrofurantoin Monohyd/M-Cryst [Macrobid -] 100 mg PO BID #14 capsule 01/12/19 Anemia: No Asthma: No Cancer: No Cardiac Disorders: No CVA: No COPD: No CHF: No Dementia: No Diabetes: No GI Disorders: No Disorders: Yes (UTI) HTN: No Hypercholesterolemia: No Liver Disease: No Seizures: No Thyroid Disease: No - Surgical History Abdominal Surgery: No Appendectomy: No Cardiac Surgery: No Cholecystectomy: No Lung Surgery: No Neurologic Surgery: No Orthopedic Surgery: No - Immunization History Td Vaccination: Yes TDAP Vaccination: Yes Immunization Up to Date: Yes - Psycho Social/Smoking Cessation Hx Smoking Status: No Smoking History: Never smoked Have you smoked in the past 12 months: No Number of Cigarettes Smoked Daily: 0 Hx Alcohol Use: No Drug/Substance Use Hx: No Substance Use Type: None Hx Substance Use Treatment: No *Physical Exam - Vital Signs Last Vital Signs Temp Pulse Resp BP Pulse Ox 98.5 F 58 L 16 113/67 99 01/12/19 00:02 01/12/19 00:02 01/12/19 00:02 01/12/19 00:02 01/12/19 00:02 Medical Decision Making - Medical Decision Making 01/12/19 00:22 33 yo F presents to ED with UTI. Patient reports she has had frequent UTIs and her symptoms today are exactly the same, including urinary frequency and dysuria. -urine Discharge - Discharge Information Problems reviewed: Yes Clinical Impression/Diagnosis: Urinary tract infection Qualifiers: Urinary tract infection type: site unspecified Hematuria presence: without hematuria Qualified Code(s): N39.0 - Urinary tract infection, site not specified Condition: Stable Disposition: HOME - Admission No - Additional Discharge Information Prescriptions: D-Mannose 500 mg PO DAILY 30 Days #1 bottle Nitrofurantoin Monohyd/M-Cryst [Macrobid -] 100 mg PO BID #14 capsule - Follow up/Referral - Patient Discharge Instructions Patient Printed Discharge Instructions: DI for Urinary Tract Infection (UTI) - Post Discharge Activity
[2019-01-12 00:51] LABS: EPI CELLS 6.4 /HPF (0-5/HPF); HYALINE CASTS 29 /lpf (0-8); PH,URINE 7.5 (5.0-8.0); URINE APPEARANCE CLOUDY; URINE BACTERIA 168.8 /hpf (NEGATIVE); URINE BILIRUBIN NEGATIVE (NEGATIVE); URINE COLOR YELLOW; URINE GLUCOSE (UA) NEGATIVE (NEGATIVE); URINE KETONE NEGATIVE (NEGATIVE); URINE LEUK ESTERASE 2+ (NEGATIVE); URINE NITRITE NEGATIVE (NEGATIVE); URINE PROTEIN NEGATIVE (NEGATIVE); URINE RBC 5 /hpf (0-4); URINE WBC 106 /hpf (0-5)
== END 2019-01-12 01:20 | disposition home or self-care (01) ==
LOC: JER 23:44
DX: N39.0 Urinary tract infection, site not specified (principal)
CPT/HCPCS: 81003; 84703; 87086; 87186; 99282-25

== ENCOUNTER 2020-02-18 18:10 | Emergency (ER) | payer OTHER ==
[2020-02-18 18:23] VITALS: BP 103/59; PULSE 72; TEMP 97.8; BMI 26.4
[2020-02-18] MEDS ORDERED: SODIUM CHLORIDE 0.9% 500 ML INFUS.BAG IV ONE (19:34)
[2020-02-18 20:49] LABS: BASO % 0.3 % (0-2.0); EOS % 2.7 % (0-4.5); HEMATOCRIT 36.4 % (32.4-45.2); HEMOGLOBIN 12.2 GM/dL (10.7-15.3); LYMPH % 15.2 % (8-40); MCH 31.6 pg (25.7-33.7); MCHC 33.4 g/dl (32.0-36.0); MEAN CELL VOLUME 94.6 fl (80-96); MEAN PLT VOLUME 9.1 fl (7.5-11.1); NEUT % 75.8 % (42.8-82.8); PLATELET COUNT 302 K/MM3 (134-434); RBC 3.85 M/mm3 (3.60-5.2); RDW 13.1 % (11.6-15.6); WHITE BLOOD COUNT 10.2 K/mm3 (4.0-10.0)
[2020-02-18 20:56] LABS: HCG,QUALITATIVE URINE Positive
[2020-02-18 20:58] LABS: URINE APPEARANCE CLEAR; URINE BILIRUBIN NEGATIVE (NEGATIVE); URINE COLOR YELLOW; URINE GLUCOSE (UA) NEGATIVE (NEGATIVE); URINE KETONE NEGATIVE (NEGATIVE); URINE LEUK ESTERASE NEGATIVE (NEGATIVE); URINE NITRITE NEGATIVE (NEGATIVE); URINE PROTEIN NEGATIVE (NEGATIVE); URINE UROBILINOGEN 0.2 mg/dL (0.2-1.0)
[2020-02-18 21:22] LABS: POTASSIUM 4.2 mmol/L (3.5-5.1)
[2020-02-18 21:25] LABS: ALBUMIN 3.6 g/dl (3.4-5.0); BLOOD UREA NITROGEN 11.2 mg/dL (7-18)
[2020-02-18 21:28] LABS: CREATININE 0.6 mg/dL (0.55-1.3)
[2020-02-18 21:29] LABS: BILIRUBIN,TOTAL 0.2 mg/dL (0.2-1); TOT PROT 7.8 g/dl (6.4-8.2)
== END 2020-02-18 23:43 | disposition home or self-care (01) ==
LOC: JER 18:10
DX: O26.899 Other specified pregnancy related conditions, unspecified trimester (principal)
CPT/HCPCS: 36415; 76801-TC; 80053; 81003; 84702; 84703; 85025; 99284-25

== ENCOUNTER 2020-09-11 21:35 | Inpatient (IN) | payer OTHER ==
[2020-09-11] MEDS ORDERED: ZOLPIDEM TARTRATE 5 MG TABLET PO ONE (22:40)
[2020-09-11] MEDS: ELECTROLYTE-148 SOLN 1,000 ML IV SCH (22:50)
[2020-09-11] MEDS: MISOPROSTOL 25 MCG TABLET (COMPOUNDED BY PHARMACY) PO PRN (23:00)
[2020-09-11 23:36] LABS: BASO % 0.4 % (0-2.0); EOS % 3.6 % (0-4.5); HEMATOCRIT 29.3 % (32.4-45.2); HEMOGLOBIN 9.7 GM/dL (10.7-15.3); LYMPH % 13.7 % (8-40); MCH 27.5 pg (25.7-33.7); MCHC 33.2 g/dl (32.0-36.0); MEAN CELL VOLUME 82.8 fl (80-96); MEAN PLT VOLUME 9.2 fl (7.5-11.1); NEUT % 75.3 % (42.8-82.8); PLATELET COUNT 274 10^3/uL (134-434); RBC 3.54 M/mm3 (3.60-5.2); RDW 14.7 % (11.6-15.6); WHITE BLOOD COUNT 9.6 K/mm3 (4.0-10.0)
[2020-09-11 23:47] LABS: INR 0.96 (0.83-1.09); PROTHROMBIN TIME (PATIENT) 11.6 SEC (9.7-13.0)
[2020-09-11 23:49] LABS: ACTIVATED PTT 28.6 SECONDS (25.2-36.5)
[2020-09-11 23:57] LABS: BLOOD UREA NITROGEN 9.8 mg/dL (7-18)
[2020-09-12] LABS: CREATININE 0.6 mg/dL (0.55-1.3)
[2020-09-12 00:40] VITALS: BMI 35.5
[2020-09-12 00:54] LABS: HIV INTERPRETATION NEGATIVE (NEGATIVE)
[2020-09-12] MEDS: MISOPROSTOL 25 MCG TABLET (COMPOUNDED BY PHARMACY) PO PRN ×2 (03:00→06:50)
[2020-09-12] MEDS ORDERED: OXYTOCIN 30 UNITS in 0.9% NS 30 UNIT/500 ML INFUS.BAG IVPB SCH (10:15)
[2020-09-12] MEDS ORDERED: OXYTOCIN 30 UNITS in 0.9% NS 30 UNIT/500 ML INFUS.BAG IVPB ONE (11:42)
[2020-09-12] MEDS ORDERED: ZOLPIDEM TARTRATE 5 MG TABLET PO ONE (20:04)
[2020-09-12] MEDS: ELECTROLYTE-148 SOLN 1,000 ML IV SCH (23:45)
[2020-09-13] MEDS ORDERED: OXYTOCIN 30 UNITS in 0.9% NS 30 UNIT/500 ML INFUS.BAG IVPB ONE (05:57)
[2020-09-13] MEDS: ELECTROLYTE-148 SOLN 1,000 ML IV SCH (06:55)
[2020-09-13] MEDS ORDERED: AMPICILLIN - 2 GM in SODIUM CHLORIDE 100 ML IVPB ONE (07:30)
[2020-09-13] MEDS ORDERED: AMPICILLIN SODIUM 2 GM VIAL ONE ×2 (07:33→11:00)
[2020-09-13] MEDS ORDERED: AMPICILLIN - 1 GM in SODIUM CHLORIDE 100 ML IVPB SCH (11:30)
[2020-09-13] MEDS ORDERED: CITRIC ACID/SODIUM CITRATE 30 ML UNIT-DOSE CUP PO ONE (12:54)
[2020-09-13] MEDS ORDERED: NALOXONE HCL 0.4 MG/ML VIAL IVPUSH PRN (12:55)
[2020-09-13] MEDS ORDERED: ceFAZolin 2 GRAM PREMIX BAG IVPB ONE (13:00)
[2020-09-13] MEDS ORDERED: morphine SULFATE/PF 0.5 MG/ML (2cc Syringe - QUVA) ONE (13:03)
[2020-09-13] MEDS ORDERED: ceFAZolin SODIUM 1 GM VIAL ONE (13:24)
[2020-09-13] MEDS ORDERED: OXYTOCIN 10 UNITS/ML VIAL ONE (13:33)
[2020-09-13] MEDS ORDERED: ONDANSETRON 4 MG/2 ML VIAL IVPB PRN (14:05)
[2020-09-13] MEDS ORDERED: ACETAMINOPHEN 1000 MG/100 ML VIAL (NON FORMULARY) IVPB PRN (14:05)
[2020-09-13] MEDS ORDERED: OXYTOCIN 20 UNITS in 0.9% NS 20 UNIT/1,000 ML INFUS.BAG IV SCH (14:15)
[2020-09-13] MEDS ORDERED: ONDANSETRON 4 MG/2 ML VIAL IVPUSH PRN (14:51)
[2020-09-13] MEDS ORDERED: IBUPROFEN 800 MG/8 ML IJ IVPB ONE (15:54)
[2020-09-13] MEDS ORDERED: OXYTOCIN 20 UNITS in 0.9% NS 20 UNIT/1,000 ML INFUS.BAG IV ONE (15:57)
[2020-09-13] MEDS ORDERED: METHYLERGONOVINE MALEATE 0.2 MG TABLET (FP) ONE (16:04)
[2020-09-13] MEDS: IBUPROFEN 800 MG/8 ML IJ IVPB PRN (16:05)
[2020-09-13] MEDS ORDERED: METHYLERGONOVINE MALEATE 0.2 MG/1 ML AMP IM ONE (16:30)
[2020-09-13] MEDS ORDERED: PROMETHAZINE HCL 25 MG/1 ML VIAL IVPUSH ONE (18:07)
[2020-09-13] MEDS: CEFAZOLIN 2 GM/D5W 2 GM/50 ML ML IVPB SCH (20:36)
[2020-09-14] MEDS: CEFAZOLIN 2 GM/D5W 2 GM/50 ML ML IVPB SCH (04:50)
[2020-09-14] MEDS: IBUPROFEN 800 MG/8 ML IJ IVPB PRN (06:12)
[2020-09-14 10:24] LABS: BASO % 0.3 % (0-2.0); EOS % 1.8 % (0-4.5); HEMATOCRIT 31.8 % (32.4-45.2); HEMOGLOBIN 10.2 GM/dL (10.7-15.3); MEAN CELL VOLUME 84.1 fl (80-96); MEAN PLT VOLUME 9.3 fl (7.5-11.1); MONO % 6.7 % (3.8-10.2); NEUT % 82.2 % (42.8-82.8); PLATELET COUNT 317 10^3/uL (134-434); RBC 3.78 M/mm3 (3.60-5.2); RDW 15.2 % (11.6-15.6); WHITE BLOOD COUNT 12.9 K/mm3 (4.0-10.0)
[2020-09-14] MEDS: SIMETHICONE 80 MG TAB.CHEW (FP) PO PRN ×3 (10:52→20:58)
[2020-09-14] MEDS ORDERED: ACETAMINOPHEN 325 MG TABLET (FP) PO PRN (14:05)
[2020-09-14] MEDS ORDERED: BISACODYL 10 MG SUPP.RECT RC PRN (14:05)
[2020-09-14] MEDS: ACETAMINOPHEN 325 MG TABLET (FP) PO PRN ×2 (14:40→20:59)
[2020-09-14] MEDS: IBUPROFEN 600 MG TABLET (FP) PO PRN ×2 (14:40→20:59)
[2020-09-14] MEDS: FENTANYL/BUPIVACAINE/NS/PF - PCEA - 50 ML DISP.SYRIN EP SCH (16:37)
[2020-09-14] MEDS: SENNOSIDES/DOCUSATE COMBO (SENNA PLUS) TABLET (UD) PO PRN (21:00)
[2020-09-14] MEDS: ELECTROLYTE-148 SOLN 1,000 ML IV SCH (23:02)
[2020-09-15] MEDS: oxyCODONE HCL 5 MG TABLET PO PRN ×4 (02:05→20:25)
[2020-09-15] MEDS: ACETAMINOPHEN 325 MG TABLET (FP) PO PRN ×4 (02:09→20:25)
[2020-09-15] MEDS: SIMETHICONE 80 MG TAB.CHEW (FP) PO PRN ×3 (07:34→20:25)
[2020-09-15] MEDS: SENNOSIDES/DOCUSATE COMBO (SENNA PLUS) TABLET (UD) PO PRN (20:25)
[2020-09-15] MEDS: IBUPROFEN 600 MG TABLET (FP) PO PRN (23:30)
[2020-09-16] MEDS: SIMETHICONE 80 MG TAB.CHEW (FP) PO PRN (01:27)
[2020-09-16] MEDS: oxyCODONE HCL 5 MG TABLET PO PRN (01:27)
[2020-09-16] MEDS: ACETAMINOPHEN 325 MG TABLET (FP) PO PRN ×2 (01:28→09:52)
[2020-09-16] MEDS: IBUPROFEN 600 MG TABLET (FP) PO PRN (09:53)
[2020-09-16 10:27] VITALS: BP 123/76; PULSE 68; TEMP 98.2
== END 2020-09-16 12:50 | disposition home or self-care (01) | DRG 540 ==
LOC: JLDR 21:35 → J3W 09-13 17:30
PROVIDERS: ADMIT Specialist; ATTEND Specialist
PROC: 3E0DXGC Introduction of Other Therapeutic Substance into Mouth and Pharynx, External Approach (ICD-10-PCS; principal; 2020-09-11)
PROC: 3E033VJ Introduction of Other Hormone into Peripheral Vein, Percutaneous Approach (ICD-10-PCS; 2020-09-12)
PROC: 10907ZC Drainage of Amniotic Fluid, Therapeutic from Products of Conception, Via Natural or Artificial Opening (ICD-10-PCS; 2020-09-12)
PROC: 10D00Z1 Extraction of Products of Conception, Low, Open Approach (ICD-10-PCS; 2020-09-13)
DX: O32.4XX0 Maternal care for high head at term, not applicable or unspecified (principal); O72.1 Other immediate postpartum hemorrhage; O61.0 Failed medical induction of labor; Z3A.39 39 weeks gestation of pregnancy; Z37.0 Single live birth
CPT/HCPCS: 36415; 80048; 85025; 85610; 85730; 86780; 86850; 86900; 86901; 87389; 88307-TC; C9803; J0131; U0003; U0005

== ENCOUNTER 2020-12-18 19:06 | Emergency (ER) | payer OTHER ==
[2020-12-18 19:10] VITALS: BP 112/75; PULSE 72; TEMP 97.7; BMI 28.3
[2020-12-18 20:35] LABS: EPI CELLS >36 /uL (0-25.1); HYALINE CASTS 3 /uL (0-3.1); PH,URINE 5.5 (5.0-8.0); URINE APPEARANCE TURBID; URINE BACTERIA >9,000 /uL (0-1359); URINE BILIRUBIN NEGATIVE (NEGATIVE); URINE COLOR YELLOW; URINE GLUCOSE (UA) NEGATIVE (NEGATIVE); URINE KETONE TRACE (NEGATIVE); URINE LEUK ESTERASE 3+ (NEGATIVE); URINE NITRITE POSITIVE (NEGATIVE); URINE PROTEIN 1+ (NEGATIVE); URINE RBC 109 /uL (0-23.9); URINE WBC 2604 /uL (0-25.8)
[2020-12-18 21:55] LABS: YEAST NONE SEEN (NEGATIVE)
== END 2020-12-18 20:52 | disposition home or self-care (01) ==
LOC: JERFT 19:06
DX: R39.15 Urgency of urination (principal)
CPT/HCPCS: 81003; 87086; 87186; 99283-25

== ENCOUNTER 2021-10-21 17:03 | Emergency (ER) | payer OTHER ==
[2021-10-21 17:11] VITALS: BP 108/68; PULSE 78; RESP 18; TEMP 98.3; BMI 26.4
[2021-10-21 19:25] LABS: HCG,QUALITATIVE URINE Negative
[2021-10-21 19:26] LABS: EPI CELLS >36 /uL (0-25.1); HYALINE CASTS 9 /uL (0-3.1); URINE APPEARANCE CLOUDY; URINE BACTERIA >9,000 /uL (0-1359); URINE BILIRUBIN NEGATIVE (NEGATIVE); URINE COLOR YELLOW; URINE GLUCOSE (UA) NEGATIVE (NEGATIVE); URINE KETONE NEGATIVE (NEGATIVE); URINE LEUK ESTERASE 2+ (NEGATIVE); URINE NITRITE POSITIVE (NEGATIVE); URINE PROTEIN NEGATIVE (NEGATIVE); URINE RBC 28 /uL (0-23.9); URINE WBC 232 /uL (0-25.8)
== END 2021-10-21 19:42 | disposition home or self-care (01) ==
LOC: JERFT 17:03
DX: R35.0 Frequency of micturition (principal)
CPT/HCPCS: 81003; 84703; 87086; 87186; 99283-25